=== PATIENT | female | born 2000 | race Caucasian/White ===

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

== ENCOUNTER 2018-08-11 13:47 | Emergency (ER) | payer OTHER ==
[2018-08-11] MEDS ORDERED: Sodium Chloride 0.9% 1000 ML 1,000 ML IV STA (14:14)
[2018-08-11] MEDS ORDERED: Sodium Chloride 0.9% 1000 ML 1,000 ML ONE (14:19)
--- NOTE | 2018-08-11 14:21 | ERPHSYRPT ---
- History of Present Illness Time Seen by Provider: 08/11/18 14:10 Source: patient Exam Limitations: no limitations Patient Subjective Stated Complaint: pt here for cough,vomiting from all ther post nasal drip. she was seen last saturday and dx with pnuemonia and was placed on antibotics and steriods, she is still taking her meds, Triage Nursing Assessment: pt aert, resp easy, skin w/d/p. no edema,she states her chest feels tight Physician History: 18-year-old white female arrives with complaint that she's been coughing she feels like she has postnasal drip she states she's been vomiting symptoms has been going on for a week she states she was seen by Ida Nelson on Saturday 5 days ago and placed on antibiotics and steroids. Patient states symptoms continue. Patient apparently had an appointment with the clinic at 3:00 PM (in approximately 33 minutes ) But felt that she could not make it until then. Past medical history includes pneumonia Past surgical history includes knee surgery. Social history patient denies tobacco alcohol or illicit drug use. Timing/Duration: week(s) (1 week) Severity: moderate Modifying Factors: Improves With: other (patient apparently had been on antibiotics, (patient thinks she is on amoxicillin)also states she was taking corticosteroids.) Associated Symptoms: nausea, vomiting, shortness of breath, cough, malaise, No abdominal pain, No heartburn, No diaphoresis, No chills, No chest pain, No fever , No headaches, No loss of appetite, No rash, No syncope, No seizure, No weakness Allergies/Adverse Reactions: bee venom protein (honey bee) Allergy (Severe, Verified 08/11/18 14:03) Swelling milk Allergy (Severe, Verified 08/11/18 14:03) Swelling azithromycin [From Zithromax] Allergy (Verified 08/11/18 14:03) cefaclor [From Ceclor] Allergy (Verified 08/11/18 14:03) cephalexin [From Keflex] Allergy (Verified 08/11/18 14:03) Home Medications: Albuterol Sulfate [Proventil Hfa] 6.7 gm IH .PRN 06/13/17 [History] Omeprazole 20 MG [Prilosec 20 mg] 40 mg PO DAILY 06/13/17 [History] Alprazolam 0.25 mg [xanAX 0.25 MG] 0.25 mg PO HS 08/06/17 [History] Amoxicillin 500 mg BID 08/11/18 [History] Methylprednisolone Packet [Medrol Dosepack] 1 tab DAILY 08/11/18 [History] Hx Tetanus, Diphtheria Vaccination/Date Given: No Hx Influenza Vaccination/Date Given: No Hx Pneumococcal Vaccination/Date Given: No Immunizations Up to Date: Yes - Review of Systems Constitutional: Malaise, No Fever, No Chills Eyes: No Symptoms Ears, Nose, & Throat: Nose Congestion, Nose Discharge, Sinus Drainage, No Ear Pain, No Ear Discharge, No Hearing Changes, No Tinnitus, No Nose Pain, No Epistaxis, No Mouth Pain, No Mouth Swelling, No Loose Teeth, No Throat Pain, No Throat Swelling, No Hoarse, No Painful Swallowing, No Snoring, No Stridor Respiratory: Cough, Dyspnea, No Cyanosis, No Dyspnea on Exertion (LEROY), No Stridor, No Wheezing Cardiac: No Chest Pain, No Edema, No Syncope Abdominal/Gastrointestinal: Nausea, Vomiting, No Abdominal Pain, No Diarrhea, No Constipation, No Hematemesis, No Hematochezia, No Melena, No Dysphagia, No Appetite Changes Genitourinary Symptoms: No Dysuria Musculoskeletal: No Back Pain, No Neck Pain Skin: No Rash Neurological: No Dizziness, No Focal Weakness, No Sensory Changes Psychological: No Symptoms Endocrine: No Symptoms All Other Systems: Reviewed and Negative - Past Medical History Pertinent Past Medical History: Yes Neurological History: No Pertinent History ENT History: No Pertinent History Cardiac History: No Pertinent History Respiratory History: Pneumonia Endocrine Medical History: No Pertinent History Musculoskeletal History: Other GI Medical History: No Pertinent History History: Other Psycho-Social History: Anxiety Female Reproductive Disorders: Other Other Medical History: BORN WITH ONLY ONE KIDNEY, ovarian cysts - Past Surgical History Past Surgical History: No Neuro Surgical History: No Pertinent History Cardiac: No Pertinent History Respiratory: No Pertinent History Gastrointestinal: No Pertinent History Genitourinary: No Pertinent History Musculoskeletal: Orthopedic Surgery Female Surgical History: No Pertinent History Other Surgical History: KNEE - Social History Smoking Status: Never smoker Exposure to second hand smoke: Yes Drug Use: none Patient Lives Alone: No - Female History Hx Last Menstrual Period: august 01 Hx Now: No - Nursing Vital Signs Nursing Vital Signs: Initial Vital Signs Temperature 97.7 F 08/11/18 13:53 Pulse Rate 120 H 08/11/18 13:53 Respiratory Rate 18 08/11/18 13:53 Blood Pressure 145/99 08/11/18 13:53 O2 Sat by Pulse Oximetry 96 08/11/18 13:53 Pain Scale Pain Intensity 6 - Physical Exam General Appearance: no apparent distress, alert Eye Exam: PERRL/EOMI, eyes nml inspection Ears, Nose, Throat Exam: normal ENT inspection (amoxicillin), TMs normal, pharynx normal, moist mucous membranes Neck Exam: normal inspection, non-tender, supple, full range of motion Respiratory Exam: normal breath sounds, lungs clear, No respiratory distress Cardiovascular Exam: regular rate/rhythm, normal heart sounds, normal peripheral pulses, capillary refill <2 sec Gastrointestinal/Abdomen Exam: soft, normal bowel sounds, No tenderness, No mass Back Exam: normal inspection, normal range of motion, No CVA tenderness, No vertebral tenderness Extremity Exam: normal inspection, normal range of motion, pelvis stable Neurologic Exam: alert, oriented x 3, cooperative, 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, normal mood/affect, nml cerebellar function, nml station & gait, sensation nml, No motor deficits Skin Exam: normal color, warm, dry, No rash Lymphatic Exam: No adenopathy SpO2 Interpretation: normal (97%) SpO2: 97 - Course Nursing assessment & vital signs reviewed: Yes - Radiology Exams Chest X-ray Interpretation: Discussed w/ radiologist (chest x-ray: Normal heart, lungs , bony thorax) Ordered Tests: Active Orders 24 hr Category Date Time Status IV Insertion STAT Care 08/11/18 14:14 Active CHEST 2 VIEWS (PA AND LAT) Stat Exams 08/11/18 15:03 Completed AMYLASE Stat Lab 08/11/18 14:30 Completed CBC W DIFF Stat Lab 08/11/18 14:30 Completed CMP Stat Lab 08/11/18 14:30 Completed HCG QUALITATIVE,SERUM Stat Lab 08/11/18 14:30 Completed LIPASE Stat Lab 08/11/18 14:30 Completed Manual Differential NC Stat Lab 08/11/18 14:30 Completed UA W/RFX UR CULTURE Stat Lab 08/11/18 14:31 Completed Medication Summary Discontinued Medications Generic Name Dose Route Start Last Admin Trade Name Freq PRN Reason Stop Dose Admin Sodium Chloride 1,000 mls @ 999 mls/hr 08/11/18 14:14 08/11/18 14:19 Sodium Chloride 0.9% 1000 Ml IV 08/11/18 15:14 999 mls/hr .Q1H1M STA Administration Sodium Chloride Confirm 08/11/18 14:19 Sodium Chloride 0.9% 1000 Ml Administered 08/11/18 14:20 Dose 1,000 mls @ ud .ROUTE .STK-MED ONE Ondansetron HCl 4 mg 08/11/18 14:48 08/11/18 14:52 Zofran 4 Mg/2 Ml Vial IV 08/11/18 14:49 4 mg STAT ONE Administration Ondansetron HCl Confirm 08/11/18 14:50 Zofran 4 Mg/2 Ml Vial Administered 08/11/18 14:51 Dose 4 mg .ROUTE .STK-MED ONE Lab/Rad Data: Laboratory Result Diagrams 08/11/18 14:30 08/11/18 14:30 Laboratory Results 08/11/18 08/11/18 08/11/18 Range/Units 14:31 14:30 14:30 WBC (4.0-10.5) K/mm3 RBC (4.1-5.4) M/mm3 Hgb (12.0-16.0) gm/dl Hct (35-47) % MCV (78-100) fl MCH (26-32) pg MCHC (32-36) g/dl RDW (11.5-14.0) % Plt Count (150-450) K/mm3 MPV (6-9.5) fl Segmented Neutrophils (36.0-66.0) % Band Neutrophils (0.0-2.0) % Lymphocytes (Manual) (24-44) % Monocytes (Manual) (0.0-12.0) % Eosinophils (Manual) (0.00-3.0) % Toxic Granulation Platelet Estimate (NORMAL) RBC Morphology Sodium 140 (137-145) mmol/L Potassium 3.9 (3.5-5.1) mmol/L Chloride 101 (98-107) mmol/L Carbon Dioxide 29 (22-30) mmol/L Anion Gap 13.5 (5-15) MEQ/L BUN 16 (7-17) mg/dL Creatinine 0.77 (0.52-1.04) mg/dL Estimated GFR > 60.0 ML/MIN Glucose 117 H (74-106) mg/dL Calcium 9.2 (8.4-10.2) mg/dL Total Bilirubin 0.90 (0.2-1.3) mg/dL AST 26 (14-36) U/L ALT 24 (0-35) U/L Alkaline Phosphatase 89 (38-126) U/L Serum Total Protein 7.6 (6.3-8.2) g/dL Albumin 4.5 (3.5-5.0) g/dL Amylase 49 (30-110) U/L Lipase 86 (23-300) U/L Serum , Qual NEGATIVE (Negative) Urine Color YELLOW (YELLOW) Urine Appearance SLIGHTLY CLOUDY (CLEAR) Urine pH 7.0 (5-6) Ur Specific [place] 1.026 (1.005-1.025) Urine Protein NEGATIVE (Negative) Urine Ketones TRACE (NEGATIVE) Urine Blood NEGATIVE (0-5) Kee/ul Urine Nitrite NEGATIVE (NEGATIVE) Urine Bilirubin NEGATIVE (NEGATIVE) Urine Urobilinogen 2 (0-1) mg/dL Ur Leukocyte Esterase NEGATIVE (NEGATIVE) Urine WBC (Auto) 0-2 (0-5) /HPF Urine RBC (Auto) NONE (0-2) /HPF U Hyaline Cast (Auto) 0-2 (0-2) /LPF U Epithel Cells (Auto) RARE (FEW) /HPF Urine Bacteria (Auto) FEW (NEGATIVE) /HPF Urine Mucus (Auto) SLIGHT (NEGATIVE) /HPF Urine Culture Reflexed NO (NO) Urine Glucose NEGATIVE (NEGATIVE) mg/dL 08/11/18 Range/Units 14:30 WBC 13.9 H (4.0-10.5) K/mm3 RBC 5.48 H (4.1-5.4) M/mm3 Hgb 16.4 H (12.0-16.0) gm/dl Hct 46.7 (35-47) % MCV 85.2 (78-100) fl MCH 29.9 (26-32) pg MCHC 35.1 (32-36) g/dl RDW 12.8 (11.5-14.0) % Plt Count 250 (150-450) K/mm3 MPV 10.9 H (6-9.5) fl Segmented Neutrophils 82 H (36.0-66.0) % Band Neutrophils 3 H (0.0-2.0) % Lymphocytes (Manual) 10 L (24-44) % Monocytes (Manual) 4 (0.0-12.0) % Eosinophils (Manual) 1 (0.00-3.0) % Toxic Granulation 1+ Platelet Estimate NORMAL (NORMAL) RBC Morphology ABNORMAL Sodium (137-145) mmol/L Potassium (3.5-5.1) mmol/L Chloride (98-107) mmol/L Carbon Dioxide (22-30) mmol/L Anion Gap (5-15) MEQ/L BUN (7-17) mg/dL Creatinine (0.52-1.04) mg/dL Estimated GFR ML/MIN Glucose (74-106) mg/dL Calcium (8.4-10.2) mg/dL Total Bilirubin (0.2-1.3) mg/dL AST (14-36) U/L ALT (0-35) U/L Alkaline Phosphatase (38-126) U/L Serum Total Protein (6.3-8.2) g/dL Albumin (3.5-5.0) g/dL Amylase (30-110) U/L Lipase (23-300) U/L Serum , Qual (Negative) Urine Color (YELLOW) Urine Appearance (CLEAR) Urine pH (5-6) Ur Specific [place] (1.005-1.025) Urine Protein (Negative) Urine Ketones (NEGATIVE) Urine Blood (0-5) Kee/ul Urine Nitrite (NEGATIVE) Urine Bilirubin (NEGATIVE) Urine Urobilinogen (0-1) mg/dL Ur Leukocyte Esterase (NEGATIVE) Urine WBC (Auto) (0-5) /HPF Urine RBC (Auto) (0-2) /HPF U Hyaline Cast (Auto) (0-2) /LPF U Epithel Cells (Auto) (FEW) /HPF Urine Bacteria (Auto) (NEGATIVE) /HPF Urine Mucus (Auto) (NEGATIVE) /HPF Urine Culture Reflexed (NO) Urine Glucose (NEGATIVE) mg/dL - Progress Progress: improved Progress Note: 08/11/18 16:01 18-year-old white female who arrives with complaint of a cough for a week she states she's been vomiting she's been having postnasal drip She apparently had been seen by Ida Nelson had been told that she might have pneumonia was placed on antibiotics also given steroids. She states she has the same symptoms. She states she has general malaise. On physical examination HEENT head atraumatic normocephalic. Eyes PERRLA EOMI fundi are unremarkable. Ears TMs mata intact bilaterally. Nose is clear. Throat is clear. Neck is supple full range of motion. Lungs are clear. Heart regular rate and rhythm without murmur patient mildly tachycardic. Abdomen soft nontender nondistended positive bowel sounds. Extremities full range of motion pulses equal and symmetrical 2 over 4. Neuro patient alert oriented 3 cranial nerves II through XII are intact DTRs symmetrical 2 over 4/. Labs patient's hCG is negative patient's white count is mildly elevated at 13.9 hemoglobin is 16.4 hematocrit 46.7 platelets 250 patient's CMP is essentially normal urinalysis is remarkable for a trace of ketones patient's chest x-ray normal heart and lungs and bony thorax Patient is given Zofran 4 mg by mouth also given 1 L of saline she reports that she feels better. Will go ahead and discharge patient. Diagnosis bronchitis. Nausea and vomiting Plan home, plenty of fluids Phenergan 25 mg every 4-6 hours as needed for nausea and vomiting this would give a side effect of some relief of her cough as well. - Departure Time of Disposition: 16:04 Departure Disposition: Home Clinical Impression: Cough, Bronchitis, Dehydration Nausea and vomiting Qualifiers: Vomiting type: unspecified Vomiting Intractability: non-intractable Qualified Code(s): R11.2 - Nausea with vomiting, unspecified Condition: Fair Critical Care Time: No Referrals: CURTIS MONREAL [Primary Care Provider] - Additional Instructions: Return home. Plenty of fluids clear fluids only 24-48 hours if nausea vomiting. Phenergan 25 mg orally every 4-6 hours as needed for vomiting or nausea. Continue and finish medications prescribed by your family doctor. Return for acute distress or for severe symptoms. Prescriptions: Promethazine HCl 25 mg [Phenergan 25 mg] 25 mg PO Q4-6HPRN PRN #12 tablet PRN Reason: nausea and vomiting
[2018-08-11 14:38] LABS: Hematocrit 46.7 % (35-47); Hemoglobin 16.4 gm/dl (12.0-16.0); Mean Cell Volume 85.2 fl (78-100); Mean Corpuscular Hemoglobin 29.9 pg (26-32); Mean Corpuscular Hgb Concent. 35.1 g/dl (32-36); Mean Platelet Volume 10.9 fl (6-9.5); Platelet Count 250 K/mm3 (150-450); Red Blood Count 5.48 M/mm3 (4.1-5.4); Red Cell Distribution Width 12.8 % (11.5-14.0); White Blood Count 13.9 K/mm3 (4.0-10.5)
[2018-08-11] MEDS ORDERED: Zofran 4 MG/2 ML VIAL IV ONE (14:48)
[2018-08-11] MEDS ORDERED: Zofran 4 MG/2 ML VIAL ONE (14:50)
[2018-08-11 14:55] LABS: Appearance SLIGHTLY CLOUDY (CLEAR); Bacteria FEW /HPF (NEGATIVE); Bilirubin NEGATIVE (NEGATIVE); Blood NEGATIVE Ery/ul (0-5); Epithelial Cells RARE /HPF (FEW); Glucose NEGATIVE (NEGATIVE); Hyaline Casts 0-2 /LPF (0-2); Ketones TRACE (NEGATIVE); Leukocyte Esterase NEGATIVE (NEGATIVE); Mucus SLIGHT /HPF (NEGATIVE); Nitrite NEGATIVE (NEGATIVE); Protein,Urine Dip NEGATIVE (Negative); Specific Gravity 1.026 (1.005-1.025); Urobilinogen 2 mg/dL (0-1); WBC 0-2 /HPF (0-5)
[2018-08-11 14:58] LABS: ALBUMIN 4.5 g/dL (3.5-5.0); ALKALINE PHOSPHATASE 89 U/L (38-126); AMYLASE 49 U/L (30-110); ANION GAP 13.5 MEQ/L (5-15); BLOOD UREA NITROGEN 16 mg/dL (7-17); CHLORIDE 101 mmol/L (98-107); Calcium 9.2 mg/dL (8.4-10.2); Carbon Dioxide 29 mmol/L (22-30); Creatinine 1 0.77 mg/dL (0.52-1.04); Glucose 117 mg/dL (74-106); LIPASE 86 U/L (23-300); Potassium 3.9 mmol/L (3.5-5.1); SGOT/AST 26 U/L (14-36); SGPT/ALT 24 U/L (0-35); SODIUM 140 mmol/L (137-145); Total Protein 7.6 g/dL (6.3-8.2)
--- NOTE | 2018-08-11 15:22 | XRAY ---
Indication: Cough and chest pain. Comparison: September 20, 2016. PA/lateral chest again demonstrates normal heart, lungs, and bony thorax.
[2018-08-11 15:27] LABS: BAND 3 % (0.0-2.0); Eosinophil 1 % (0.00-3.0); Lymphocytes 10 % (24-44); Monocyte 4 % (0.0-12.0); Neutrophils 82 % (36.0-66.0); Total Cells Counted 100
[2018-08-11 15:28] LABS: Platelet Estimate NORMAL (NORMAL); Toxic Granulation 1+
[2018-08-11 16:20] VITALS: BP 108/54; PULSE 88; O2SAT 98
== END 2018-08-11 16:23 | disposition home or self-care (01) ==
LOC: ED 13:47
DX: R05 Cough (principal); J40 Bronchitis, not specified as acute or chronic; E86.0 Dehydration; R11.2 Nausea with vomiting, unspecified; F41.9 Anxiety disorder, unspecified; N83.209 Unspecified ovarian cyst, unspecified side; Z79.899 Other long term (current) drug therapy
CPT/HCPCS: 36000; 36415; 71046; 80053; 81001; 81025; 82150; 83690; 85025; 96360; 96374; 99284; J2405

== ENCOUNTER 2020-09-19 07:56 | Emergency (ER) | payer OTHER ==
--- NOTE | 2020-09-19 07:59 | ERPHSYRPT ---
- History of Present Illness Source: patient Exam Limitations: no limitations Timing/Duration: yesterday Hx Tetanus, Diphtheria Vaccination/Date Given: No Hx Influenza Vaccination/Date Given: No Hx Pneumococcal Vaccination/Date Given: No <MANOLO DALY - Last Filed: 09/19/20 07:57> - History of Present Illness Activites at Onset: none Quality: cramping Onset Location: suprapubic, pelvic pain Pain Radiation: none Severity of Pain-Max: moderate Severity of Pain-Current: moderate Prior abdominal problems: none Sexual intercourse history: non-contributory Modifying Factors: Improves With: nothing Associated Symptoms: abdominal pain <LANE HATCH - Last Filed: 09/19/20 09:29> - History of Present Illness Time Seen by Provider: 09/19/20 07:57 Physician History: This is a 20-year-old white female who states that she does not believe she is and states that she does not believe she should be on her menstrual period at this time who presents with 1 day history of lower abdominal/pelvic cramping and associated vaginal spotting. This morning, the symptoms of abdominal/pelvic cramping have worsened. The vaginal spotting is remained the same. Patient states she is never had a pain like this before. She has not had fevers. She has no flank pain. She has no dysuria. Patient denies cough and she denies chest pain. (MANOLO DALY) Patient has a history of anxiety and gastroesophageal reflux disease. Patient states that she has had a history of ruptured ovarian cyst in the past and that this does feel similar to that. Patient states that she is 2 weeks out from her last menstrual cycle. (LANE HATCH) Allergies/Adverse Reactions: bee venom protein (honey bee) Allergy (Severe, Verified 09/19/20 08:04) Swelling milk Allergy (Severe, Verified 09/19/20 08:04) Swelling acetaminophen [From Tylenol] Allergy (Verified 09/19/20 08:09) azithromycin [From Zithromax] Allergy (Verified 09/19/20 08:04) cefaclor [From Ceclor] Allergy (Verified 09/19/20 08:04) cephalexin [From Keflex] Allergy (Verified 09/19/20 08:04) Home Medications: Albuterol Sulfate [Proventil Hfa] 6.7 gm IH .PRN 06/13/17 [History] ALPRAZolam 0.25 MG [xanAX 0.25 MG] 0.25 mg PO HS 08/06/17 [History] Citalopram Hydrobromide [Citalopram HBr] 1 ea DAILY 09/19/20 [History] Hydroxyzine HCl 25 mg DAILY 09/19/20 [History] Travel Risk - International Travel Have you traveled outside of the country in past 3 weeks: No - Coronavirus Screening Are you exhibiting any of the following symptoms?: No Close contact with a COVID-19 positive Pt in past 14-21 Days: No - Vaccine Status Have you recieved a Covid-19 vaccination: No <LANE HATCH - Last Filed: 09/19/20 09:29> - Review of Systems Constitutional: No Symptoms Eyes: No Symptoms Ears, Nose, & Throat: No Symptoms Respiratory: No Symptoms Cardiac: No Symptoms Abdominal/Gastrointestinal: Abdominal Pain Genitourinary Symptoms: Vaginal Bleeding (Described as spotting) <LANE HATCH - Last Filed: 09/19/20 09:29> - Past Medical History Pertinent Past Medical History: Yes Neurological History: No Pertinent History ENT History: No Pertinent History Cardiac History: No Pertinent History Respiratory History: Pneumonia Endocrine Medical History: No Pertinent History Musculoskeletal History: Other GI Medical History: No Pertinent History History: Other Psycho-Social History: Anxiety Female Reproductive Disorders: Other Other Medical History: BORN WITH ONLY ONE KIDNEY, ovarian cysts - Past Surgical History Past Surgical History: No Neuro Surgical History: No Pertinent History Cardiac: No Pertinent History Respiratory: No Pertinent History Gastrointestinal: No Pertinent History Genitourinary: No Pertinent History Musculoskeletal: Orthopedic Surgery Female Surgical History: No Pertinent History Other Surgical History: KNEE - Social History Smoking Status: Never smoker Exposure to second hand smoke: Yes Drug Use: none Patient Lives Alone: No <MANOLO DALY - Last Filed: 09/19/20 07:57> - Past Medical History Pertinent Past Medical History: Yes - Past Surgical History Past Surgical History: No <LANE HATCH - Last Filed: 09/19/20 09:29> - Physical Exam General Appearance: no apparent distress, alert, anxiety Eye Exam: PERRL/EOMI, eyes nml inspection Ears, Nose, Throat Exam: normal ENT inspection, moist mucous membranes Neck Exam: normal inspection, non-tender, supple, full range of motion Respiratory Exam: normal breath sounds, lungs clear, airway intact, No chest tenderness, No respiratory distress Cardiovascular Exam: tachycardia Gastrointestinal/Abdomen Exam: soft, normal bowel sounds, tenderness, guarding (Suprapubic left greater than right) Pelvic Exam: not done Rectal Exam: not done Back Exam: normal inspection, normal range of motion, No CVA tenderness, No vertebral tenderness Extremity Exam: normal inspection, normal range of motion, pelvis stable Neurologic Exam: alert, oriented x 3, cooperative, vice president of 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 II-XII nml as tested, normal mood/affect, nml cerebellar function, nml station & gait, sensation nml Skin Exam: normal color, warm, dry Lymphatic Exam: No adenopathy O2 Delivery: Room Air <LANE HATHC - Last Filed: 09/19/20 09:29> - Nursing Vital Signs Nursing Vital Signs: Initial Vital Signs Temperature 98.5 F 09/19/20 08:12 Pulse Rate 112 H 09/19/20 08:12 Respiratory Rate 18 09/19/20 08:12 Blood Pressure 126/66 09/19/20 08:12 O2 Sat by Pulse Oximetry 98 09/19/20 08:12 Pain Scale Pain Intensity 8 - Course Nursing assessment & vital signs reviewed: Yes <LANE HATCH - Last Filed: 09/19/20 09:29> Ordered Tests: Active Orders 24 hr Category Date Time Status IV Insertion STAT Care 09/19/20 08:12 Active ABDOMEN AND PELVIS W/0 CONTRAS [CT] Stat Exams 09/19/20 08:13 Completed AMYLASE Stat Lab 09/19/20 08:25 Completed CBC W DIFF Stat Lab 09/19/20 08:25 Completed CMP Stat Lab 09/19/20 08:25 Completed HCG,QUALITATIVE URINE Stat Lab 09/19/20 08:26 Completed LIPASE Stat Lab 09/19/20 08:25 Completed Lactic Acid Stat Lab 09/19/20 08:12 Completed PROTIME WITH INR Stat Lab 09/19/20 08:25 Completed UA W/RFX UR CULTURE Stat Lab 09/19/20 08:26 Completed Medication Summary Generic Name Dose Route Start Last Admin Trade Name Freq PRN Reason Stop Dose Admin Sodium Chloride 1,000 mls @ 100 mls/hr 09/19/20 08:15 09/19/20 08:33 Sodium Chloride 0.9% 1000 Ml IV 10/19/20 08:14 100 mls/hr .Q10H JAVED Administration Discontinued Medications Generic Name Dose Route Start Last Admin Trade Name Reyes PRN Reason Stop Dose Admin Hydromorphone HCl 1 mg 09/19/20 08:12 09/19/20 08:33 Hydromorphone 1 Mg/Ml Injection IV 09/19/20 08:13 1 mg STAT ONE Administration Hydromorphone HCl Confirm 09/19/20 08:29 Hydromorphone 1 Mg/Ml Injection Administered 09/19/20 08:30 Dose 1 mg .ROUTE .STK-MED ONE Ondansetron HCl 4 mg 09/19/20 08:12 09/19/20 08:33 Zofran 4 Mg/2 Ml Vial IV 09/19/20 08:13 4 mg STAT ONE Administration Ondansetron HCl Confirm 09/19/20 08:29 Zofran 4 Mg/2 Ml Vial Administered 09/19/20 08:30 Dose 4 mg .ROUTE .STK-MED ONE Lab/Rad Data: Laboratory Result Diagrams 09/19/20 08:25 09/19/20 08:25 Laboratory Results 09/19/20 09/19/20 09/19/20 Range/Units 08:26 08:26 08:25 WBC (4.0-10.5) K/mm3 RBC (4.1-5.4) M/mm3 Hgb (12.0-16.0) gm/dl Hct (35-47) % MCV (78-100) fl MCH (26-32) pg MCHC (32-36) g/dl RDW (11.5-14.0) % Plt Count (150-450) K/mm3 MPV (7.5-11.0) fl Gran % (36.0-66.0) % Eos # (Auto) (0-0.5) Absolute Lymphs (auto) (1.0-4.6) Absolute Monos (auto) (0.0-1.3) Lymphocytes % (24.0-44.0) % Monocytes % (0.0-12.0) % Eosinophils % (0.00-5.0) % Basophils % (0.0-0.4) % Absolute Granulocytes (1.4-6.9) Basophils # (0-0.4) PT 11.7 (9.95-12.35) SECONDS INR 1.04 (0.8-3.0) Sodium (137-145) mmol/L Potassium (3.5-5.1) mmol/L Chloride (98-107) mmol/L Carbon Dioxide (22-30) mmol/L Anion Gap (5-15) MEQ/L BUN (7-17) mg/dL Creatinine (0.52-1.04) mg/dL Estimated GFR ML/MIN Glucose (74-106) mg/dL Lactic Acid (0.4-2.0) Calcium (8.4-10.2) mg/dL Total Bilirubin (0.2-1.3) mg/dL AST (14-36) U/L ALT (0-35) U/L Alkaline Phosphatase (38-126) U/L Serum Total Protein (6.3-8.2) g/dL Albumin (3.5-5.0) g/dL Amylase (30-110) U/L Lipase (23-300) U/L Urine Color YELLOW (YELLOW) Urine Appearance CLEAR (CLEAR) Urine pH 6.0 (5-6) Ur Specific Shorter 1.011 (1.005-1.025) Urine Protein NEGATIVE (Negative) Urine Ketones NEGATIVE (NEGATIVE) Urine Blood SMALL (0-5) Kee/ul Urine Nitrite NEGATIVE (NEGATIVE) Urine Bilirubin NEGATIVE (NEGATIVE) Urine Urobilinogen NEGATIVE (0-1) mg/dL Ur Leukocyte Esterase NEGATIVE (NEGATIVE) Urine WBC (Auto) NONE (0-5) /HPF Urine RBC (Auto) NONE (0-2) /HPF U Epithel Cells (Auto) RARE (FEW) /HPF Urine Bacteria (Auto) NONE (NEGATIVE) /HPF Urine Culture Reflexed NO (NO) Urine Glucose NEGATIVE (NEGATIVE) mg/dL Urine HCG, Qual NEGATIVE (Negative) 09/19/20 09/19/20 09/19/20 Range/Units 08:25 08:25 08:12 WBC 6.9 (4.0-10.5) K/mm3 RBC 5.24 (4.1-5.4) M/mm3 Hgb 15.9 (12.0-16.0) gm/dl Hct 45.1 (35-47) % MCV 86.1 (78-100) fl MCH 30.3 (26-32) pg MCHC 35.3 (32-36) g/dl RDW 12.4 (11.5-14.0) % Plt Count 257 (150-450) K/mm3 MPV 10.8 (7.5-11.0) fl Gran % 58.6 (36.0-66.0) % Eos # (Auto) 0.46 (0-0.5) Absolute Lymphs (auto) 1.66 (1.0-4.6) Absolute Monos (auto) 0.68 (0.0-1.3) Lymphocytes % 24.0 (24.0-44.0) % Monocytes % 9.8 (0.0-12.0) % Eosinophils % 6.6 H (0.00-5.0) % Basophils % 1.0 (0.0-0.4) % Absolute Granulocytes 4.05 (1.4-6.9) Basophils # 0.07 (0-0.4) PT (9.95-12.35) SECONDS INR (0.8-3.0) Sodium 141 (137-145) mmol/L Potassium 3.8 (3.5-5.1) mmol/L Chloride 105 (98-107) mmol/L Carbon Dioxide 26 (22-30) mmol/L Anion Gap 14.4 (5-15) MEQ/L BUN 8 (7-17) mg/dL Creatinine 0.77 (0.52-1.04) mg/dL Estimated GFR > 60.0 ML/MIN Glucose 99 (74-106) mg/dL Lactic Acid 2.0 (0.4-2.0) Calcium 10.0 (8.4-10.2) mg/dL Total Bilirubin 0.70 (0.2-1.3) mg/dL AST 24 (14-36) U/L ALT 19 (0-35) U/L Alkaline Phosphatase 69 (38-126) U/L Serum Total Protein 7.9 (6.3-8.2) g/dL Albumin 4.8 (3.5-5.0) g/dL Amylase 38 (30-110) U/L Lipase 55 (23-300) U/L Urine Color (YELLOW) Urine Appearance (CLEAR) Urine pH (5-6) Ur Specific Shorter (1.005-1.025) Urine Protein (Negative) Urine Ketones (NEGATIVE) Urine Blood (0-5) Kee/ul Urine Nitrite (NEGATIVE) Urine Bilirubin (NEGATIVE) Urine Urobilinogen (0-1) mg/dL Ur Leukocyte Esterase (NEGATIVE) Urine WBC (Auto) (0-5) /HPF Urine RBC (Auto) (0-2) /HPF U Epithel Cells (Auto) (FEW) /HPF Urine Bacteria (Auto) (NEGATIVE) /HPF Urine Culture Reflexed (NO) Urine Glucose (NEGATIVE) mg/dL Urine HCG, Qual (Negative) - Progress Progress: improved, re-examined Air Movement: good Blood Culture(s) Obtained: No Antibiotics given: No Counseled pt/family regarding: lab results, diagnosis, need for follow-up, rad results <LANE HATCH - Last Filed: 09/19/20 09:29> - Progress Progress Note: 09/19/20 09:26 CAT scan of the abdomen pelvis without contrast shows no acute intra-abdominal or intrapelvic abnormality. (LANE HATCH) <MANOLO DALY - Last Filed: 09/19/20 07:57> - Departure Departure Disposition: Home Critical Care Time: No <LANE HATCH - Last Filed: 09/19/20 09:29> - Departure Clinical Impression: Vaginal spotting, Suprapubic abdominal pain Condition: Stable Referrals: CURTIS MONREAL [Primary Care Provider] - Additional Instructions: Use ibuprofen for pain control. Follow-up with your primary care physician for further management and pain control.
[2020-09-19] MEDS ORDERED: Hydromorphone 1 mg/ml Injection IV ONE (08:12)
[2020-09-19] MEDS ORDERED: Zofran 4 MG/2 ML VIAL IV ONE (08:12)
[2020-09-19] MEDS ORDERED: Sodium Chloride 0.9% 1000 ML 1,000 ML IV SCH (08:15)
[2020-09-19] MEDS ORDERED: Zofran 4 MG/2 ML VIAL ONE (08:29)
[2020-09-19] MEDS ORDERED: Sodium Chloride 0.9% 1000 ML 1,000 ML ONE (08:29)
[2020-09-19] MEDS ORDERED: Hydromorphone 1 mg/ml Injection ONE (08:29)
[2020-09-19 08:31] LABS: Absolute Neutrophil Ct (ANC) 4.05 (1.4-6.9); Basophil (Absolute #) 0.07 (0-0.4); Eosinophil % 6.6 % (0.00-5.0); Eosinophil (Absolute #) 0.46 (0-0.5); Hematocrit 45.1 % (35-47); Hemoglobin 15.9 gm/dl (12.0-16.0); Lymphocyte (Absolute #) 1.66 (1.0-4.6); Mean Cell Volume 86.1 fl (78-100); Mean Corpuscular Hemoglobin 30.3 pg (26-32); Mean Corpuscular Hgb Concent. 35.3 g/dl (32-36); Mean Platelet Volume 10.8 fl (7.5-11.0); Monocyte (Absolute #) 0.68 (0.0-1.3); Monocytes % 9.8 % (0.0-12.0); Neutrophil % 58.6 % (36.0-66.0); Platelet Count 257 K/mm3 (150-450); Red Blood Count 5.24 M/mm3 (4.1-5.4); Red Cell Distribution Width 12.4 % (11.5-14.0); White Blood Count 6.9 K/mm3 (4.0-10.5)
[2020-09-19 08:37] LABS: Appearance CLEAR (CLEAR); Bilirubin NEGATIVE (NEGATIVE); Blood SMALL Ery/ul (0-5); Epithelial Cells RARE /HPF (FEW); Glucose NEGATIVE (NEGATIVE); Ketones NEGATIVE (NEGATIVE); Leukocyte Esterase NEGATIVE (NEGATIVE); Nitrite NEGATIVE (NEGATIVE); Protein,Urine Dip NEGATIVE (Negative); Specific Gravity 1.011 (1.005-1.025); Urobilinogen NEGATIVE mg/dL (0-1)
[2020-09-19 08:38] LABS: INR 1.04 (0.8-3.0); PROTIME 11.7 SECONDS (9.95-12.35)
[2020-09-19 08:43] LABS: ALBUMIN 4.8 g/dL (3.5-5.0); ALKALINE PHOSPHATASE 69 U/L (38-126); AMYLASE 38 U/L (30-110); ANION GAP 14.4 MEQ/L (5-15); BLOOD UREA NITROGEN 8 mg/dL (7-17); CHLORIDE 105 mmol/L (98-107); Carbon Dioxide 26 mmol/L (22-30); Creatinine 1 0.77 mg/dL (0.52-1.04); EST GLOMERULAR FILTRATION RATE > 60.0 ML/MIN; Glucose 99 mg/dL (74-106); LIPASE 55 U/L (23-300); Potassium 3.8 mmol/L (3.5-5.1); SGOT/AST 24 U/L (14-36); SGPT/ALT 19 U/L (0-35); SODIUM 141 mmol/L (137-145); Total Protein 7.9 g/dL (6.3-8.2)
--- NOTE | 2020-09-19 09:19 | XRAY ---
Indication: Abdomen/pelvic pain, nausea, and vomiting. Multiple contiguous axial images obtained through the abdomen and pelvis without contrast. Comparison: July 11, 2016. Lung bases remain clear of infiltrate and effusion. Heart is not enlarged. Stomach is moderately distended with food/fluid. Noncontrasted bowel loops appear nonobstructed with normal appendix. 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 Uterus demonstrates new IUD in situ. No free fluid/air. Remaining liver, gallbladder, pancreas, spleen, adrenal glands, left kidney, left ureter, bladder, uterus, and aorta appear unremarkable for noncontrast exam. Osseous structures intact. No ventral or inguinal hernias. Impression: 1. New IUD in situ without complications. 2. 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 3. Remaining CT abdomen/pelvis without contrast exam is negative.
[2020-09-19] MEDS ORDERED: TORAdol 30 mg Injection IV ONE (09:28)
[2020-09-19] MEDS ORDERED: TORAdol 30 mg Injection ONE (09:32)
[2020-09-19 09:38] VITALS: PULSE 68; O2SAT 96
[2020-09-19 09:47] VITALS: BP 103/61
== END 2020-09-19 09:50 | disposition home or self-care (01) ==
LOC: ED 07:56
DX: N93.8 Other specified abnormal uterine and vaginal bleeding (principal)
CPT/HCPCS: 36000; 36415; 74176; 80053; 81001; 82150; 83605; 83690; 84703; 85025; 85610; 96374; 96375; 99284; J1170; J1885; J2405

== ENCOUNTER 2021-07-08 18:23 | Emergency (ER) | payer OTHER ==
[2021-07-08 18:36] VITALS: O2SAT 99
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
[2021-07-08 19:52] VITALS: BP 134/88; PULSE 88
--- NOTE | 2021-07-10 08:24 | XRAY ---
Indication: Pain following sledding injury. Comparison: None. 3 view left knee demonstrates minimal medial joint space narrowing. No other bony, articular, or soft tissue abnormalities.
== END 2021-07-08 19:52 | disposition home or self-care (01) ==
LOC: ED 18:23
DX: M23.92 Unspecified internal derangement of left knee (principal); S89.92XA Unspecified injury of left lower leg, initial encounter; V89.9XXA Person injured in unspecified vehicle accident, initial encounter; Y93.23 Activity, snow (alpine) (downhill) skiing, snowboarding, sledding, tobogganing and snow tubing; Z79.899 Other long term (current) drug therapy
CPT/HCPCS: 73562; 99284; L1830

== ENCOUNTER 2021-09-26 20:42 | Emergency (ER) | payer OTHER ==
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
[2021-09-26] MEDS ORDERED: Pepcid 20 MG PO ONE (21:09)
[2021-09-26] MEDS ORDERED: solu-MEDROL 125 MG, Sterile H2O 10 ml 2 ML IM ONE ×2 (21:09)
[2021-09-26] MEDS ORDERED: BENADRYL 50 MG/ML IM ONE (21:09)
[2021-09-26] MEDS ORDERED: Sterile H2O 10 ml IJ ONE (21:12)
[2021-09-26] MEDS ORDERED: solu-MEDROL ONE (21:12)
[2021-09-26] MEDS ORDERED: Pepcid 20 MG ONE (21:12)
[2021-09-26] MEDS ORDERED: BENADRYL 50 MG/ML ONE (21:12)
[2021-09-26 21:24] VITALS: BP 130/96; PULSE 92; O2SAT 99
== END 2021-09-26 21:29 | disposition home or self-care (01) ==
LOC: ED 20:42
DX: L27.0 Generalized skin eruption due to drugs and medicaments taken internally (principal); T40.2X5A Adverse effect of other opioids, initial encounter; T39.1X5A Adverse effect of 4-Aminophenol derivatives, initial encounter; Z79.899 Other long term (current) drug therapy
CPT/HCPCS: 96372; 99284; J1200; J2930; A9270-GY

== ENCOUNTER 2022-02-24 17:26 | Emergency (ER) | payer OTHER ==
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
[2022-02-24] MEDS ORDERED: Sodium Chloride 0.9% 1000 ML 1,000 ML IV STA (17:44)
[2022-02-24] MEDS ORDERED: Zofran 4 MG/2 ML VIAL IV ONE (17:44)
[2022-02-24] MEDS ORDERED: Hydromorphone 1 mg/ml Injection IV ONE (17:44)
[2022-02-24] MEDS ORDERED: Sodium Chloride 0.9% 1000 ML 1,000 ML ONE (17:46)
[2022-02-24] MEDS ORDERED: Zofran 4 MG/2 ML VIAL ONE (17:46)
[2022-02-24 17:50] LABS: Absolute Neutrophil Ct (ANC) 5.66 x10^3/uL (1.4-6.9); Basophil (Absolute #) 0.12 x10^3/uL (0-0.4); Eosinophil % 5.4 % (0.00-5.0); Eosinophil (Absolute #) 0.53 x10^3/uL (0-0.5); Hematocrit 43.5 % (35-47); Hemoglobin 15.2 g/dL (12.0-16.0); Lymphocyte (Absolute #) 2.47 x10^3/uL (1.0-4.6); Lymphocytes % 25.3 % (24.0-44.0); Mean Corpuscular Hgb Concent. 34.9 g/dL (32-36); Monocyte (Absolute #) 0.89 x10^3/uL (0.0-1.3); Monocytes % 9.1 % (0.0-12.0); Neutrophil % 58.2 % (36.0-66.0); Platelet Count 321 x10^3/uL (150-450); Red Blood Count 5.06 x10^6/uL (4.1-5.4); Red Cell Distribution Width 12.2 % (11.5-14.0); White Blood Count 9.8 x10^3/uL (4.0-10.5)
[2022-02-24 17:58] LABS: ALBUMIN 4.9 g/dL (3.5-5.0); ALKALINE PHOSPHATASE 81 U/L (38-126); AMYLASE 53 U/L (30-110); ANION GAP 12.4 MEQ/L (5-15); BLOOD UREA NITROGEN 9 mg/dL (7-17); CHLORIDE 103 mmol/L (98-107); Calcium 9.3 mg/dL (8.4-10.2); Carbon Dioxide 27 mmol/L (22-30); Creatinine 1 0.67 mg/dL (0.52-1.04); EST GLOMERULAR FILTRATION RATE > 60.0 ML/MIN; Glucose 121 mg/dL (74-106); LIPASE 74 U/L (23-300); Potassium 3.6 mmol/L (3.5-5.1); SGOT/AST 23 U/L (14-36); SGPT/ALT 21 U/L (0-35); SODIUM 139 mmol/L (137-145); Total Protein 7.8 g/dL (6.3-8.2)
[2022-02-24 17:59] LABS: Epithelial Cells RARE /HPF (FEW)
[2022-02-24 18:00] LABS: Appearance CLEAR (CLEAR); Bilirubin NEGATIVE (NEGATIVE); Dipstick done @ ? MAIN LAB; Glucose NEGATIVE (NEGATIVE); Ketones NEGATIVE (NEGATIVE); Nitrite NEGATIVE (NEGATIVE); Protein,Urine Dip NEGATIVE (Negative); RBC NEGATIVE Ery/ul (0-5); Specific Gravity 1.025 (1.005-1.025); Urobilinogen 0.2 mg/dL (0-1)
[2022-02-24 18:01] LABS: Urine Cultured Indicated? NO
[2022-02-24] MEDS ORDERED: TORAdol 30 mg Injection IV ONE (18:41)
[2022-02-24] MEDS ORDERED: Compazine 10 MG/2 ML IV ONE (18:41)
[2022-02-24] MEDS ORDERED: Compazine 10 MG/2 ML ONE (18:46)
[2022-02-24] MEDS ORDERED: TORAdol 30 mg Injection ONE (18:46)
[2022-02-24 19:13] VITALS: BP 93/54; PULSE 69; O2SAT 96
--- NOTE | 2022-02-24 21:14 | XRAY ---
Indication: Right lower quadrant pain. Multiple contiguous axial images obtained through the abdomen and pelvis without contrast. Comparison: September 19, 2020 Lung bases remain clear. Heart not enlarged. Stomach is distended with food/fluid. Noncontrasted stomach and bowel loops nonobstructed again with normal appendix. Again congenitally absent right kidney. No free fluid/air. Uterus again demonstrates IUD in situ. Remaining liver, gallbladder, pancreas, spleen, adrenal glands, left kidney, left ureter, bladder, uterus, and aorta are unremarkable for noncontrast exam. Osseous structures intact. Impression: Continued negative CT abdomen/pelvis without contrast exam again with incidental congenitally absent right kidney. Comment: Preliminary interpretation made by [facility]. No critical discrepancy.
--- NOTE | 2022-02-24 21:21 | XRAY ---
Indication: Right lower quadrant pain. Negative same-day CT abdomen/pelvis without contrast exam. Two-dimensional transvaginal pelvic sonogram performed. Comparison: December 01, 2020 Uterus again anteverted measuring 7.5 x 3.6 x 5.1 cm. Again no focal solid/cystic uterine mass. There remains a IUD with the tip at the level of the fundus. No endometrial cavity mass. Endocervix demonstrates tiny sliver of fluid. Right ovary measures 3.6 x 2.3 x 2.8 cm and the left measures 4.3 x 2.2 x 2.0 cm. Normal perfusion and follicular cysts bilaterally. New tiny right adnexa and cul-de-sac free fluid presumed physiologic from rupture/leaking cyst. No suspicious adnexal mass. Impression: 1. New tiny right adnexa and cul-de-sac physiologic free fluid. 2. Remaining transvaginal pelvic sonogram negative again with incidental IUD. Comment: Preliminary report was given.
== END 2022-02-24 21:48 | disposition home or self-care (01) ==
LOC: ED 17:26
DX: N83.201 Unspecified ovarian cyst, right side (principal); R10.31 Right lower quadrant pain; R10.2 Pelvic and perineal pain
CPT/HCPCS: 36000; 36415; 74176; 76830; 80053; 81015; 81025; 82150; 83690; 85025; 96374; 96375; 99284; J1170; J1885; J2405